=== PATIENT | female | born 1955 | race Caucasian/White ===

== ENCOUNTER 2019-08-17 14:52 | Outpatient (CLI) | payer MEDICARE, OTHER, SELFPAY ==
--- NOTE | ~2019-08-17 | MM_ITS ---
EXAMINATION: MM screening smooth BI w riley HISTORY: Screening mammogram TECHNIQUE: Craniocaudal and mediolateral oblique 3-D tomosynthesis images were obtained and synthetic 2-D images were generated. CAD analysis was submitted and interpreted. COMPARISON: Comparison to multiple prior studies sequentially, with oldest reviewed study dated 02/05. BREAST PARENCHYMAL COMPOSITION: The breasts are heterogeneously dense, which may obscure small masses . FINDINGS: There is no evidence of suspicious mass, calcification, or architectural distortion to sugg est malignancy in either breast. There has been no suspicious interval change. IMPRESSION: 1. No mammographic evidence of malignancy. 2. Recommend routine screening mammography in one year. BI-RADS Category 1: Negative Reviewed, dictated and finalized at location A.
--- NOTE | ~2019-08-17 | DEXA_ITS ---
Bone Density Report Name: Deb Gomes Age: 63 Sex: Female Ethnicity: White Date of : 1955 Indication: osteopenia; monitoring treatment; hysterectomy; Referring Provider: MARYJANE PINA Study: Bone densitometry was performed. Exam Date: August 17, 2019 Accession number: [id number] Bone Density: Region BMD T-score Z-score Classification AP Spine (L1, L2, L3) 0.808 -1.9 -0.1 Osteopenia Femoral Neck (Left) 0.561 -2.6 -1.0 Osteoporosis Total Hip (Left) 0.673 -2.2 -0.9 Osteopenia Total Hip Bilateral Avg 0.666 -2.3 -0.9 Osteopenia Femoral Neck (Right) 0.590 -2.3 -0.8 Osteopenia Total Hip (Right) 0.659 -2.3 -1.0 Osteopenia World Health Organization criteria for BMD impression classify patients as: Normal (T-score at or above -1.0), Osteopenia (T-score between -1.0 and -2.5), or Osteoporosis (T-score at or below -2.5). 10-year Fracture Risk: FRAX not reported because: Some T-score for Spine Total or Hip Total or Femoral Neck at or below -2.5 Treated for osteoporosis Previous Exams: Region Exam Age BMD T-score BMD Change BMD Change Date g/cm2 vs Baseline vs Previous AP Spine(L1, L2, L3) 08/17/2019 63 0.808 -1.9 -0.099(-10.9%) 0.000(0.0%)# 07/30/2017 61 0.808 -1.9 -0.098(-10.8%) -0.013(-1.6%) 03/12/2015 59 0.822 -1.8 -0.085(-9.4%)# -0.085(-9.4%)# 02/20/2013 57 0.907 -1.0 Total Hip(Left) 08/17/2019 63 0.673 -2.2 -0.086(-11.3%) 0.021(3.2%)# 07/30/2017 61 0.652 -2.4 -0.107(-14.1%) -0.027(-4.0%)* 03/12/2015 59 0.680 -2.2 -0.080(-10.5%) -0.080(-10.5%) 02/20/2013 57 0.759 -1.5 Total Hip(Right) 08/17/2019 63 0.659 -2.3 -0.027(-4.0%)* 0.008(1.2%)# 07/30/2017 61 0.651 -2.4 -0.035(-5.2%)# -0.006(-0.9%) 03/12/2015 59 0.657 -2.3 -0.030(-4.3%)# -0.030(-4.3%)# 02/20/2013 57 0.686 -2.1 *Denotes significance at 95% confidence level, LSC for AP Spine = 0.022 g/cm2, LSC for Total Hip = 0.027 g/cm2 Clinical Information Provided by Patient: Is being treated for osteoporosis Has used the following medications: Fosamax (i.e. alendronate), Calcium Has the following medical conditions: Hysterectomy Patient maximum height was 62.5 Menopause Age: 34 Drinks caffeinated beverages Onset of menses at age 8 Number of children 0 Impression: The patient has osteoporosis, based on the Left Femoral Neck T-score. No significant bone loss was observed. Discussion: PATIENT UNDER TREATMENT WITH N
== END 2019-08-17 14:53 | disposition home or self-care (01) ==
LOC: ANHIMG 15:02
PROVIDERS: PCP Family Medicine; Visit Provider Nurse Practitioner Family
DX: Z12.31 Encounter for screening mammogram for malignant neoplasm of breast (principal); Z78.0 Asymptomatic menopausal state; M81.0 Age-related osteoporosis without current pathological fracture; M85.89 Other specified disorders of bone density and structure, multiple sites
CPT/HCPCS: 77063; 77067; 77080